=== PATIENT | female | born 1995 | race Caucasian/White ===

== ENCOUNTER 2025-03-15 11:46 | Emergency (ER) | payer SELFPAY ==
[~2025-03-15] VITALS: Ht 172.7 cm; Wt 44.6 kg
[2025-03-15] MEDS ORDERED: SODIUM CHLORIDE 0.9% 1,000 ML IV PRN (12:15)
[2025-03-15 12:38] LABS: BASOPHILS 0.6 % (0.1-1.2); EOSINOPHILS 0.1 % (0.7-5.8); LYMPHOCYTES 7.2 % (19.3-51.7); MCH 32.0 PG (25.6-32.2); MCHC 32.2 g/dL (32.2-35.5); MCV 99.5 fL (79.4-94.8); MONOCYTES 2.1 % (4.7-12.5); NEUTROPHILS 89.7 % (34.0-71.1); RBC 4.40 M/uL (3.93-5.22)
[2025-03-15 13:38] LABS: BLOOD/HGB, URINE LARGE (Negative); KETONE, URINE >=80 (Negative); LEUK ESTERASE, URINE NEGATIVE (negative); NITRITE, URINE NEGATIVE (negative)
[2025-03-15 13:48] LABS: BACTERIA, URINE NONE SEEN /hpf (negative); CASTS, URINE NONE SEEN \\lpf; CRYSTALS, URINE NONE SEEN (0-1+); EPITHELIAL CELLS, URINE SQUAMOUS 3+ /lpf (0-1+); REFLEX CULTURE, URINE No (No)
[2025-03-15 14:31] LABS: ALT (SGPT) 60.0 U/L (14-59); AST (SGOT) 76.0 U/L (15-37); GLOMERULAR FILTRATION RATE,EST 113.0 mL/min (>60); PROTEIN, TOTAL 8.2 g/dL (6.4-8.2); UREA NITROGEN 17.0 mg/dL (7-18)
[2025-03-15 15:00] VITALS: BP 104/54
[2025-03-15] MEDS ORDERED: CYPROHEPTADINE H4 MG PO (15:44)
== END 2025-03-15 15:53 | disposition home or self-care (01) ==
LOC: ED 11:46
PROVIDERS: Emergency Medicine
DX: R63.4 Abnormal weight loss (principal)
CPT/HCPCS: 36415; 80053; 81001; 83690; 84436; 84439; 84443; 84703; 85025; 96361; 96374; 99284-25; J2405; J7030

== ENCOUNTER 2025-07-31 09:08 | Emergency (ER) | payer SELFPAY ==
[~2025-07-31] VITALS: Ht 172.7 cm; Wt 51.9 kg
[~2025-07-31 09:08] MED LIST: CYPROHEPTADINE H4 MG PO
[2025-07-31] MEDS ORDERED: METOCLOPRAMIDE HCL 10 MG/2 ML SDV IV ONE (09:30)
[2025-07-31] MEDS ORDERED: SODIUM CHLORIDE 0.9% 1,000 ML IV ONE (09:30)
[2025-07-31 09:32] LABS: BASOPHILS 0.4 % (0.1-1.2); EOSINOPHILS 0.1 % (0.7-5.8); LYMPHOCYTES 14.1 % (19.3-51.7); MCH 32.0 PG (25.6-32.2); MCHC 34.0 g/dL (32.2-35.5); MCV 94.0 fL (79.4-94.8); MONOCYTES 4.5 % (4.7-12.5); NEUTROPHILS 80.6 % (34.0-71.1); RBC 4.19 M/uL (3.93-5.22)
[2025-07-31] MEDS ORDERED: HALOPERIDOL LACTATE 5 MG/ML VIAL IV ONE (09:45)
[2025-07-31 09:54] LABS: ALT (SGPT) 14.0 U/L (14-59); AST (SGOT) 16.0 U/L (15-37); GLOMERULAR FILTRATION RATE,EST 119.0 mL/min (>60); PROTEIN, TOTAL 8.3 g/dL (6.4-8.2); UREA NITROGEN 9.0 mg/dL (7-18)
[2025-07-31 10:10] LABS: BLOOD/HGB, URINE LARGE (Negative); KETONE, URINE >=80 (Negative); LEUK ESTERASE, URINE SMALL (negative); NITRITE, URINE POSITIVE (negative)
[2025-07-31 10:18] LABS: CORONAVIRUS COVID-19 AG NEGATIVE (NEGATIVE)
[2025-07-31 10:21] VITALS: BP 121/65
[2025-07-31 10:24] LABS: BACTERIA, URINE 1+ /hpf (negative); CASTS, URINE NONE SEEN \\lpf; CRYSTALS, URINE NONE SEEN (0-1+); EPITHELIAL CELLS, URINE SQUAMOUS 2+ /lpf (0-1+); REFLEX CULTURE, URINE No (No)
== END 2025-07-31 10:21 | disposition home or self-care (01) ==
LOC: ED 09:08
PROVIDERS: Emergency Medicine
DX: O21.8 Other vomiting complicating pregnancy (principal)
CPT/HCPCS: 36415; 80053; 81001; 83690; 84703; 85025; 96374; 96375; 99284-25; J1200; J1630; J2765; J7030